=== PATIENT | female | born 1970 | race Caucasian/White ===

== ENCOUNTER 2018-12-28 23:53 | Observation (INO) | payer OTHER, MEDICARE ==
[~2018-12-28] VITALS: Ht 165.1 cm; Wt 57.0 kg
[~2018-12-28 23:53] MED LIST: ADULT ASPIRIN81 MG; ASPI81CH PO; CYCL10 PO; DULO30; INDO25 PO; MECL12.5 PO; TOPI50 PO; TRAZ50 PO; VENL75ER
[2018-12-29 00:05] LABS: Calcium, Ionized (POC) 1.17 mmol/L (1.10-1.46); Chloride (POC) 108 mmol/L (98-108); Creatinine (POC) 0.7 mg/dL (0.6-1.0); Glucose (ISTAT POC) 158 mg/dL (70-99); Hemoglobin (POC) 15.3 g/dL (12.0-16.0); Potassium (POC) 3.4 mmol/L (3.5-5.5); Sodium (POC) 144 mmol/L (135-148); Total CO2 (POC) 17 mmol/L (21-32)
[2018-12-29 00:10] LABS: BASOPHILS ABSOLUTE AUTO 0.05 K/mm3 (0.00-0.23); BASOPHILS PERCENT AUTO 0 % (0-2); EOSINOPHILS ABSOLUTE AUTO 0.14 K/mm3 (0.00-0.68); EOSINOPHILS PERCENT AUTO 1 % (0-6); Hematocrit 47.4 % (33.0-51.0); Hemoglobin 14.3 g/dL (11.5-16.0); IMMATURE GRAN ABSOLUTE AUTO 0.03 K/mm3 (0.00-0.10); IMMATURE GRAN PERCENT AUTO 0 % (0-1); LYMPHOCYTES PERCENT AUTO 32 % (21-46); MONOCYTES PERCENT AUTO 6 % (4-13); Mean Corpuscular HGB 29.2 pg (26.0-34.0); Mean Corpuscular HGB Conc 30.2 g/dL (31.5-36.5); Mean Corpuscular Volume 97 fL (80-100); Mean Platelet Volume 11.1 fL (9.1-12.4); NEUTROPHILS PERCENT AUTO 61 % (41-73); Platelet Count 296 K/mm3 (150-400); RDW Coefficient Variation 13.1 % (11.7-14.2); RDW Standard Deviation 46.7 fL (35.1-46.3); Red Blood Cell Count 4.89 M/mm3 (3.80-5.20); White Blood Cell Count 12.02 K/mm3 (4.00-11.30)
[2018-12-29 00:14] LABS: Source, Urine Catheter
[2018-12-29 00:18] LABS: Bilirubin, Urine Neg (Neg); Blood, Urine Neg (Neg); Glucose Qualitative, Urine Neg (Neg); Ketones, Urine Neg (Neg); Leukocyte Esterase, Urine 1+ (Neg); Nitrite, Urine Neg (Neg); Protein, Urine 1+ (Neg); Specific Gravity, Urine 1.025 (1.003-1.022); Urobilinogen, Urine 1+ (Normal)
[2018-12-29 00:20] LABS: Appearance, Urine Clear (Clear); Color, Urine Yellow (P-Yellow)
[2018-12-29 00:24] LABS: Amorphous Light ({null, 0-Heavy}); Bacteria Mod /hpf; Hyaline Casts 0-2 /lpf (0-2); Red Blood Cells, Urine 0-2 /hpf (0-2); Squamous Epithelial Cells Rare /hpf (Few)
[2018-12-29 00:27] LABS: Alanine Aminotransfer (ALT/SGP 33 U/L (12-78); Albumin, Blood 3.4 g/dL (3.4-5.0); Alk Phos 79 U/L (50-136); Anion Gap 18 mmol/L (6-16); Aspartate Aminotrans (AST/SGOT 26 U/L (12-37); Bilirubin, Total 0.4 mg/dL (0.1-1.0); Blood Urea Nitrogen 12 mg/dL (8-24); Bun/Creatinine Ratio 13.5 (12.0-20.0); CO2, Blood 16 mmol/L (21-32); Calcium, Blood 8.8 mg/dL (8.5-10.1); Chloride, Blood 112 mmol/L (98-108); Creatinine, Blood 0.89 mg/dL (0.40-1.00); Ethanol (Alcohol), Blood, Med <3 mg/dL; Globulin, Blood 3.5 g/dL (2.2-4.0); Glomerular Filtration Rate 60 (60-); Glucose, Blood 159 mg/dL (70-99); Potassium, Blood 3.5 mmol/L (3.5-5.5); Salicylate 3.4 mg/dL (2.8-20.0); Sodium, Blood 146 mmol/L (136-145); Total Protein, Blood 6.9 g/dL (6.4-8.2)
[2018-12-29 00:29] LABS: U Amphetamine Screen DETECTED; U Barbituate Screen Not Detected; U Benzodiazapine Screen Not Detected; U Buprenorphine Screen Not Detected; U Cannabinoids Screen DETECTED; U Cocaine Screen Not Detected; U Methadone Screen Not Detected; U Methamphetamine Screen DETECTED; U Opiates Screen Not Detected; U Oxycodone Screen Not Detected; U Phencyclidine Screen Not Detected; U Propoxyphene Screen Not Detected
[2018-12-29 00:33] LABS: Acetaminophen, Random <2.0 ug/mL (10.0-30.0)
--- NOTE | 2018-12-29 02:00 | NUR ---
[place] of Care/Admission: Patient arrived to unit at 0150hr accompanied by ED nurse. Patient very drowsy, responds to verbal stimuli, opens eyes, but quickly goes back to sleep/unable to stay awake. Will state her name and that she is in the hospital, but unsure of date/time/location of hospital. Ataxic movements of extremities, but able to follow commands and squeeze hands. Unable to cough (on command), but strong gag reflex. No s/s of N/V or seizures that were both previously noted in ED. VSS, systolic BP 90's-100, O2-96% on RA, heart rhythm shows 100% ventricular pacing, rate-74. Peripheral IV's x2 patent and intact, 1/2 NS infusing at 75ml/hr. Sitter in room with patient at all times. Plan to call poison control. Will continue to monitor for pain, comfort, safety. Will complete suicide assessment when patient able to participate.
--- NOTE | 2018-12-29 03:25 | NUR ---
Poison Control/Call to Dr. Herbert: Contacted Poison Control, informed of patient's admission and reports (from ) that she took Trazodone (unknown dose). Also discussed labs, current assessment of patient, and current treatment plan. Received instructions to monitor for prolonged QT, at risk for Serotonin Syndrome, keep K+ above 4, magnesium above 2, and to re-check ASA level with morning labs. Contacted Dr. Herbert, received orders to increase 1/2 NS infusion from 75ml/hr to 100ml/hr, give 40meq IV KCL x1, check magnesium level now, and to re-check ASA level with morning labs. Dr. Herbert also instructed that he did not want to place patient on 2-MD hold at this time.
--- NOTE | 2018-12-29 06:24 | NUR ---
Shift Summary: Patient became more alert throughout remainder of shift. Now awaking spontaneously, and oriented x4, remains slightly drowsy. Positive suicide risk assessment, but denies any suicidal ideations at this time. VSS throughout remainder of shift, no s/s of seizure activity, no N/V. Peripheral IV's patent and intact. 2MD hold papers received from ED, this nurse read the patient her civil rights, patient signed and stated understanding of 2MD hold. Calm and cooperative with staff. Sitter present in room at all times. Will continue to monitor until report to day shift RN.
--- NOTE | 2018-12-29 07:30 | NUR ---
ASSUMED CARE: PT RESTING QUIETLY. VSS. PT IS DROWSY BUT RESPONDS WHEN STIMULATED. SITTER AT BEDSIDE. NO ACUTE CHANGES OR CONCERNS NOTED AT THIS TIME
[2018-12-29 08:12] LABS: Hematocrit 38.2 % (33.0-51.0); Hemoglobin 12.4 g/dL (11.5-16.0); Mean Corpuscular HGB 29.1 pg (26.0-34.0); Mean Corpuscular HGB Conc 32.5 g/dL (31.5-36.5); Platelet Count 237 K/mm3 (150-400); RDW Coefficient Variation 13.3 % (11.7-14.2); RDW Standard Deviation 43.8 fL (35.1-46.3); Red Blood Cell Count 4.26 M/mm3 (3.80-5.20)
[2018-12-29 08:21] LABS: Mean Corpuscular Volume 90 fL (80-100)
[2018-12-29 08:37] LABS: Alanine Aminotransfer (ALT/SGP 29 U/L (12-78); Albumin, Blood 2.9 g/dL (3.4-5.0); Albumin/Globulin Ratio 0.9 (0.8-1.8); Alk Phos 68 U/L (50-136); Anion Gap 5 mmol/L (6-16); Aspartate Aminotrans (AST/SGOT 22 U/L (12-37); Bilirubin, Total 0.3 mg/dL (0.1-1.0); Blood Urea Nitrogen 13 mg/dL (8-24); Bun/Creatinine Ratio 18.7 (12.0-20.0); CO2, Blood 24 mmol/L (21-32); Calcium, Blood 7.9 mg/dL (8.5-10.1); Chloride, Blood 111 mmol/L (98-108); Globulin, Blood 3.1 g/dL (2.2-4.0); Glomerular Filtration Rate >60 (60-); Glucose, Blood 88 mg/dL (70-99); Potassium, Blood 4.9 mmol/L (3.5-5.5); Sodium, Blood 140 mmol/L (136-145)
--- NOTE | 2018-12-29 09:20 | NUR ---
GHAZALA UMANZOR HERE TO SEE PT. DROPPED SUICIDE RISK. SITTER RELEASED
[2018-12-29] MEDS ORDERED: SERT50 PO (10:31)
--- NOTE | 2018-12-29 11:08 | NUR ---
FAMILY AT BEDSIDE. CARE MANAGERS SPEAKING WITH FAMILY NOW
--- NOTE | 2018-12-29 11:25 | NUR ---
CARE MANAGERS SPOKE WITH PT'S FAMILY. CARE MANAGERS WILL BE SPEAKING WITH GHAZALA UMANZOR AND DR MANEUL ABOUT CONCERNS WITH DISCHARGE. PT'S PARENTS AT BEDSIDE AT THIS TIME AWAITING DISCHARGE PLANNING TO RETURN
--- NOTE | 2018-12-29 18:00 | NUR ---
SHIFT SUMMARY: PT HAS BEEN NAPPING MAJORITY OF DAY. WAKES WHEN SPOKEN TO. DENIES NEEDS OR CONCERNS. PLAN IS TO DC TO [facility] OR INPATIENT PSYCH FACILITY. NO FURTHER NEEDS OR CONCERNS AT THIS TIME
--- NOTE | 2018-12-29 22:58 | NUR ---
CARE ASSUMED REPORT RECEIVED, CARE ASSUMED AT 1900. PT SLEEPING AT CHANGE OF SHIFT, AROUSES EASILY FOR ASSESSMENT. STAND BY ASSIST TO TOILET, DENIES FURTHER NEEDS. VITALS STABLE. SEE ASSESSMENT/FLOWSHEET. PT QUICKLY FELL BACK ASLEEP AFTER ASSESSMENT AND HAS BEEN SLEEPING SINCE, DENYING NEEDS ON ROUNDS.
[2018-12-30 04:46] LABS: Anion Gap 6 mmol/L (6-16); Blood Urea Nitrogen 13 mg/dL (8-24); Bun/Creatinine Ratio 16.3 (12.0-20.0); CO2, Blood 26 mmol/L (21-32); Chloride, Blood 109 mmol/L (98-108); Glomerular Filtration Rate >60 (60-); Glucose, Blood 68 mg/dL (70-99); Potassium, Blood 3.9 mmol/L (3.5-5.5); Sodium, Blood 141 mmol/L (136-145)
--- NOTE | 2018-12-30 06:23 | NUR ---
SUMMARY PT HAS SLEPT SOUNDLY MOST OF THE NIGHT, CALLING ON OCCASION FOR NEEDS. STAND BY ASSIST TO BATHROOM. PT HAS HAD MINIMAL APPETITE BUT DID EAT ONE SNACK IN THE MIDDLE OF THE NIGHT PER PT REQUEST. VITALS STABLE, ASSESSMENTS UNCHANGED.
--- NOTE | 2018-12-30 07:28 | NUR ---
ASSUMED CARE: PT RESTING QUIETLY. NO ACUTE NEEDS AT THIS TIME. DR MANUEL AT BEDSIDE AT THIS TIME.
--- NOTE | 2018-12-30 09:09 | NUR ---
GHAZALA UMANZOR IN ROOM WITH PT AT THIS TIME
--- NOTE | 2018-12-30 11:14 | NUR ---
RELAYED TO PT THAT WE WERE WAITING FOR A BED AT [facility]. PT STATED SHE HAS NEVER BEEN TO AN INPATIENT FACILITY BEFORE. ASKED PT IF SHE IS STILL SUICIDAL, STATED SHE WAS NOT BUT COULD NOT GUARANTEE SHE WOULD NEVER DO IT AGAIN. WHEN ASKED ABOUT THE CAUSE OF THIS EVENT SHE SAID STRESS AND WAS NOT FORTHCOMING ABOUT FURTHER DETAILS. PROVIDED PT WITH SAFETY PLAN PAPERWORK THAT SHE SAID SHE WOULD TAKE A LOOK AT. NO FURTHER NEEDS OR CONCERNS AT THIS TIME
--- NOTE | 2018-12-30 16:26 | NUR ---
DISCHARGE PLANNING CAME TO DISCUSS DISCHARGE WITH PT, THAT [facility]. PT SAID SHE DID NOT WANT TO GO AND WANTED TO GO HOME. BO CORTES CALLED DR MANUEL AND GHAZALA UMANZOR TO MAKE THEM AWARE. AWAITING DR MANUEL TO DROP 2 MD HOLD
--- NOTE | 2018-12-30 16:47 | NUR ---
DR MANUEL SIGNED DROP HOLD PAPERS. ATTEMPTED TO CALL [facility] TO SET UP [facility] APPOINTMENT BUT [facility] STATES NO ONE WAS AVAILABLE TO SET UP FOLLOW UP. GAVE PT NUMBER TO CALL TO SET UP APPOINTMENT HERSELF. IVS DC'D WNL. DENIED FURTHER QUESTIONS OR CONCERNS. AMBULATORY UPON DISCHARGE
== END 2018-12-30 16:48 | disposition home or self-care (01) ==
LOC: ER 23:53 → EDBD 23:54 → ICUW 23:54
PROVIDERS: Emergency Medicine; Internal Medicine; ADMIT Internal Medicine
DX: T43.212A Poisoning by selective serotonin and norepinephrine reuptake inhibitors, intentional self-harm, initial encounter (principal); E87.1 Hypo-osmolality and hyponatremia; R94.6 Abnormal results of thyroid function studies
CPT/HCPCS: 36415; 51701; 70450; 80047; 80048; 80053; 81001; 81025; 83735; 84439; 84443; 85014; 85025; 85027; 87086; 93005; 93010; 96365; 96366; 96372; 96374; 96375; 99285-25; G0378; G0480; J1650; J2405; J3480; J7050

== ENCOUNTER 2019-09-06 19:56 | Emergency (ER) | payer OTHER, MEDICARE ==
[~2019-09-06] VITALS: Ht 162.6 cm; Wt 59.0 kg
[~2019-09-06 19:56] MED LIST changes: +SERT50 PO
[2019-09-06 20:16] LABS: BASOPHILS ABSOLUTE AUTO 0.04 K/mm3 (0.00-0.23); BASOPHILS PERCENT AUTO 0 % (0-2); EOSINOPHILS ABSOLUTE AUTO 0.24 K/mm3 (0.00-0.68); EOSINOPHILS PERCENT AUTO 3 % (0-6); Hematocrit 39.3 % (33.0-51.0); Hemoglobin 12.8 g/dL (11.5-16.0); IMMATURE GRAN ABSOLUTE AUTO 0.02 K/mm3 (0.00-0.10); IMMATURE GRAN PERCENT AUTO 0 % (0-1); LYMPHOCYTES ABSOLUTE AUTO 3.09 K/mm3 (0.84-5.20); LYMPHOCYTES PERCENT AUTO 35 % (21-46); MONOCYTES PERCENT AUTO 6 % (4-13); Mean Corpuscular HGB 27.8 pg (26.0-34.0); Mean Corpuscular HGB Conc 32.6 g/dL (31.5-36.5); Mean Corpuscular Volume 85 fL (80-100); Mean Platelet Volume 10.3 fL (9.1-12.4); NEUTROPHILS ABSOLUTE AUTO 5.03 K/mm3 (1.96-9.15); NEUTROPHILS PERCENT AUTO 57 % (41-73); Platelet Count 288 K/mm3 (150-400); RDW Coefficient Variation 14.7 % (11.7-14.2); RDW Standard Deviation 46.2 fL (35.1-46.3); White Blood Cell Count 8.92 K/mm3 (4.00-11.30)
[2019-09-06 20:29] LABS: Alanine Aminotransfer (ALT/SGP 31 U/L (12-78); Albumin, Blood 3.1 g/dL (3.4-5.0); Albumin/Globulin Ratio 0.8 (0.8-1.8); Alk Phos 102 U/L (50-136); Anion Gap 6 mmol/L (6-16); Aspartate Aminotrans (AST/SGOT 24 U/L (12-37); Bilirubin, Total 0.2 mg/dL (0.1-1.0); Blood Urea Nitrogen 12 mg/dL (8-24); Bun/Creatinine Ratio 17.8 (12.0-20.0); CO2, Blood 25 mmol/L (21-32); Calcium, Blood 8.3 mg/dL (8.5-10.1); Chloride, Blood 109 mmol/L (98-108); Creatinine, Blood 0.68 mg/dL (0.40-1.00); Globulin, Blood 3.8 g/dL (2.2-4.0); Glomerular Filtration Rate >60 (60-); Glucose, Blood 77 mg/dL (70-99); Potassium, Blood 4.1 mmol/L (3.5-5.5); Sodium, Blood 140 mmol/L (136-145); Total Protein, Blood 6.9 g/dL (6.4-8.2)
[2019-09-06 21:54] LABS: Free Thyroxine 0.74 ng/dL (0.70-1.60)
== END 2019-09-06 22:43 | disposition home or self-care (01) ==
LOC: ER 19:56
PROVIDERS: Emergency Medicine
DX: R42 Dizziness and giddiness (principal); R51 Headache; F43.9 Reaction to severe stress, unspecified; Z91.048 Other nonmedicinal substance allergy status; Z88.8 Allergy status to other drugs, medicaments and biological substances; Z88.5 Allergy status to narcotic agent; Z91.040 Latex allergy status; Z79.899 Other long term (current) drug therapy; Z79.82 Long term (current) use of aspirin
CPT/HCPCS: 36415; 71046; 80053; 82728; 83735; 84439; 84443; 85025; 93005; 93010; 93971; 99285-25